=== PATIENT | female | born 1975 | race Caucasian/White ===

== ENCOUNTER 2022-07-02 10:27 | Emergency (ER) | payer SELFPAY ==
[~2022-07-02] VITALS: Ht 162 cm; Wt 71.4 kg
[2022-07-02] MEDS ORDERED: IBUPROFEN 600 MG (MOTRIN) TAB PO ONE (10:45)
[2022-07-02] MEDS ORDERED: ONDANSETRON 4 MG (ZOFRAN) ORAL DISSOLVE TAB PO ONE (10:45)
--- NOTE | 2022-07-02 10:45 | ED Cough/URI ---
General Chief Complaint: COVID19 Suspect/Confirmed Stated Complaint: HEADACHE,VOMITING,NAUSEA,BODY ACHE,DIZZINESS Source: patient Exam Limitations: no limitations History of Present Illness Date Seen by Provider: Jul 02, 2022 Time Seen by Provider: 10:30 Initial Comments 47-year-old female with no pertinent past medical history coming in due to 1 day of body aches, headache, nausea with nonbloody nonbilious vomiting, and feeling lightheaded. Has not been around anyone sick that she knows of. Has not had any fever that she knows of. Last vomited yesterday evening. Did take some Advil yesterday as well which did help. Denies any chest pain, shortness of breath, abdominal pain, diarrhea, cough, weakness, numbness, rash, or any other concerns. LMP was a long time ago as she is in menopause Allergies and Home Medications Allergies Coded Allergies: Penicillins (Verified Allergy, Unknown, 07/02/22) erythromycin base (Verified Allergy, Unknown, 07/02/22) Patient Home Medication List Home Medication List Reviewed: Yes Review of Systems Review of Systems Constitutional: No fever; malaise EENTM: No blurred vision Respiratory: No cough Cardiovascular: No chest pain Gastrointestinal: vomiting Genitourinary: no symptoms reported Musculoskeletal: no symptoms reported Skin: no symptoms reported Psychiatric/Neurological: No Symptoms Reported Hematologic/Lymphatic: No Symptoms Reported Immunological/Allergic: no symptoms reported All Other Systems Reviewed Negative Unless Noted: Yes Past Seydtoz-Rxisgt-Lxokiq Hx Patient Social History Tobacco Use?: No Past Medical History Surgeries: No Physical Exam Vital Signs - First Documented 07/02/22 10:41 Temp 36.6 Pulse 74 Resp 16 B/P (MAP) 144/98 (113) Pulse Ox 98 O2 Delivery Room Air Capillary Refill : Height: '" Weight: lbs. oz. kg; BMI Method: General Appearance: WD/WN, no apparent distress Eyes: Bilateral Eye Normal Inspection HEENT: PERRL/EOMI, normal ENT inspection, pharynx normal Neck: non-tender, full range of motion, supple, normal inspection Respiratory: chest non-tender, lungs clear, normal breath sounds, no respiratory distress, no accessory muscle use Cardiovascular: regular rate, rhythm, no edema, no murmur Gastrointestinal: normal bowel sounds, non tender, soft; No distended, No guarding, No rebound Extremities: normal range of motion, non-tender, normal inspection, no pedal edema, no calf tenderness, normal capillary refill Neurologic/Psychiatric: no motor/sensory deficits, alert, normal mood/affect Skin: normal color, warm/dry Lymphatic: no adenopathy Progress/Results/Core Measures Suspected Sepsis SIRS Temperature: Pulse: Respiratory Rate: Blood Pressure / Mean: Results/Orders Lab Results Laboratory Tests Test 07/02/22 11:00 Range/Units Influenza Type A (RT-PCR) Not Detected Not Detecte Influenza Type B (RT-PCR) Not Detected Not Detecte SARS-CoV-2 RNA (RT-PCR) Detected H Not Detecte My Orders Orders - TOPHER BRADFORD MD Influenza A And B By Pcr (07/02/22 10:45) Covid 19 Inhouse Test (07/02/22 10:45) Ondansetron Oral Dissolve Tab (Zofran (07/02/22 10:45) Ibuprofen Tablet (Motrin Tablet) (07/02/22 10:45) Medications Given in ED Current Medications Medications Dose Ordered Sig/Jordon Route Start Time Stop Time Status Last Admin Dose Admin Ibuprofen 600 mg ONCE ONCE PO 07/02/22 10:45 07/02/22 10:47 DC 07/02/22 11:02 600 MG Ondansetron HCl 4 mg ONCE ONCE PO 07/02/22 10:45 07/02/22 10:47 DC 07/02/22 11:02 4 MG Vital Signs/I&O 07/02/22 10:41 Temp 36.6 Pulse 74 Resp 16 B/P (MAP) 144/98 (113) Pulse Ox 98 O2 Delivery Room Air Capillary Refill : Progress Note : Progress Note 47-year-old female with above history coming in due to a flulike illness. ABCs were intact and vitals were stable on presentation. Physical exam reassuring wi th no focal abnormalities. Flu and COVID testing performed and COVID test was positive. She was given ibuprofen as well as Zofran with improvement in her symptoms. She would qualify for Paxlovid based on her BMI and she would like a prescription. Otherwise well-appearing and stable for discharge. Departure Impression Primary Impression: COVID-19 Disposition: 01 HOME, SELF-CARE Condition: Stable Departure-Patient Inst. Referrals: NO,LOCAL PHYSICIAN (PCP) Primary Care Physician Patient Instructions: COVID-19 ED, Nirmatrelvir and Ritonavir FDA Fact Sheet Add. Discharge Instructions: You do have COVID. Isolate from anybody for 5 days after your initial symptoms. Wear a mask around people for 5 more days after that. Take ibuprofen and/or Tylenol as needed for fever or body aches. Be sure to drink plenty of fluids. Nausea medicines were sent to [facility] on [address] as well as Paxlovid which is the medicine to help treat it. Scripts Ondansetron (Ondansetron Odt) 4 Mg Tab.rapdis 4 MG PO Q6H PRN for NAUSEA/VOMITING-1ST LINE for 5 Days, #20 TAB Prov: TOPHER BRADFORD MD 07/02/22 Nirmatrelvir/Ritonavir (Paxlovid Co-Pack (Eua)) 150 Mg X 2-100 Mg Tablet 1 EACH PO UD for 5 Days, #1 EACH Prov: TOPHER BRADFORD MD 07/02/22 Work/School Note: Work Release Form Date Seen in the Emergency Department: Jul 02, 2022 Return to Work: Jul 07, 2022 Restrictions: Return-No Fever (24hrs), Return-No Vomiting(24hrs) TOPHER BRADFORD MD Jul 02, 2022 10:45
[2022-07-02] MEDS ORDERED: NIRM1TAB PO (11:41)
[2022-07-02] MEDS ORDERED: ONDA4TAB11 PO (11:41)
[2022-07-02 11:45] VITALS: BP 144/98
== END 2022-07-02 11:45 | disposition home or self-care (01) ==
LOC: EDUNIT# 10:27 → ER 10:32
DX: U07.1 COVID-19 (principal); Z28.310 Unvaccinated for COVID-19
CPT/HCPCS: 87636; 99283